=== PATIENT | female | born 1965 | race Caucasian/White ===

== ENCOUNTER → 2017-06-30 16:23 | Outpatient (CLI) | payer BC, SELFPAY ==
[2017-07-07 11:06] LABS: HPV APTIMA, High Risk Negative (Negative)
== END ==
PROVIDERS: Visit Provider Nurse Practitioner Women's Health
DX: Z12.4 Encounter for screening for malignant neoplasm of cervix (principal)
CPT/HCPCS: 88175; G0145

== ENCOUNTER → 2017-07-02 06:52 | Outpatient (CLI) | payer BC, SELFPAY ==
[2017-07-02 07:39] LABS: Cholesterol 301 mg/dL (200); Glucose 90 mg/dL (74-106); High Density Lipoprotein 60 mg/dL; Triglycerides 102 mg/dL; Very Low Density Lipoprotein 20 mg/dL (5-40)
== END ==
PROVIDERS: Family Provider Family Medicine; PCP Family Medicine; Visit Provider Family Medicine
DX: Z13.1 Encounter for screening for diabetes mellitus (principal); Z13.220 Encounter for screening for lipoid disorders
CPT/HCPCS: 36415; 80061; 82947

== ENCOUNTER → 2017-08-26 06:54 | Outpatient (CLI) | payer BC, SELFPAY ==
--- NOTE | 2017-08-26 06:59 | BI_ITS ---
MAMMOGRAPHY - BILATERAL SCREENING REASON FOR EXAM: Female, 52 years old. Routine annual screening examination. PERTINENT HISTORY: Aunt with breast cancer. TECHNIQUE: Digital bilateral breast natalie (3D mammographic acquisition) in the CC and MLO projections. 2-D mediolateral oblique (MLO) and craniocaudad (CC) views of both breasts were obtained. CAD: Full Field Digital Mammography with Computer Added Detection was performed. COMPARISON: Comparison is made with prior outside examination dated October 19, 2015. FINDINGS: Breast Composition: There are scattered areas of fibroglandular density. There are no dominant masses or suspicious calcifications. Stable small bilateral axillary lymph nodes. No other significant abnormalities are identified. There has been no significant change since the prior study. BI/SCREENING MAMM (CAD), BILAT IMPRESSION: Stable bilateral screening mammogram. Yearly follow-up mammogram recommended. (A) ASSESSMENT CATEGORY: BIRADS Category 2: Benign. A letter regarding these results will be sent to the patient by the facility within 30 days. Approximately 10% of breast cancers are not detected by mammography. A normal mammogram should not delay biopsy of a clinically suspicious abnormality. [id number] Electronically Signed: Jonnie Keller MD at 8:39 EDT Tel [phone], Service support ,
== END ==
PROVIDERS: Family Provider Family Medicine; PCP Family Medicine; Visit Provider Nurse Practitioner Women's Health
DX: Z12.31 Encounter for screening mammogram for malignant neoplasm of breast (principal)
CPT/HCPCS: 77063; 77067

== ENCOUNTER → 2018-01-08 06:41 | Outpatient (CLI) | payer BC, SELFPAY ==
[2018-01-08 08:23] LABS: CPK Total, Creatine Kinase 82 U/L (26-192); Cholesterol 229 mg/dL (200); High Density Lipoprotein 50 mg/dL; Triglycerides 171 mg/dL; Very Low Density Lipoprotein 34 mg/dL (5-40)
== END ==
PROVIDERS: Family Provider Family Medicine; PCP Family Medicine; Visit Provider Family Medicine
DX: E78.00 Pure hypercholesterolemia, unspecified (principal)
CPT/HCPCS: 36415; 80061; 82550

== ENCOUNTER 2018-04-09 07:19 | Day surgery (SDC) | payer BC, SELFPAY ==
[2018-04-09 07:50] VITALS: BP 122/65; PULSE 73; RESP 14; TEMP 37.3; O2SAT 99; BMI 29.2
--- NOTE | 2018-04-09 07:50 | HP.PCM_ITS ---
History of Present Illness Date of Admission: 04/09/18 The patient is a 52 year old F here for screening colonoscopy. She denies any blood in her stool or abdominal pain. She denies any family history of colon cancer. She has never had a colonoscopy. Past Medical/Surgical History - Cardiovascular Hx of Irregular Heartbeat and/or Afib: No Hx Heart Attack: No Hx Congestive Heart Failure: No Hx Hypertension: No Hx Pacemaker: No - Respiratory Hx Chronic Obstructive Pulmonary Disease (COPD): No Hx Asthma: No Hx Emphysema: No Hx Sleep Apnea: No Do You Snore Loudly (louder than talking or can be heard): No Do You Often Feel Tired/ Fatigued/ Sleepy Dring Daytime?: No Has Anyone Observed You Stop Breathing During Sleep?: No Result (for STOP score): Negative Smoking Status: Never smoker - Gastrointestinal Hx Gastroesophageal Reflux: No Hx Ulcer: No - Neurological Hx Seizures: No Hx CVA/Stroke: No Hx Multiple Sclerosis: No Hx Parkinson's Disease: No Hx Head/Neck Injury: No Hx Headaches: No Hx Back Injury/Pain: No - Psycho/Social Hx Anxiety: No Hx Depression: Yes Allergies penicillin G Allergy (Mild, Verified 04/09/18 07:36) Other - Physical Exam General: Alert, Oriented x3, Cooperative Neck: No JVD Lungs: Normal air movement Cardiovascular: Regular rate, Regular Rhythm Abdomen: Soft, Non Tender, Non-Distended Assessment/Plan 52-year-old female for screening colonoscopy 1. I explained endoscopy in detail to the patient. I explained the risks including but not limited to stroke or heart attack with anesthesia, perforation of the GI tract, bleeding, infection. I explained that any of these could necessitate further emergency surgery. The patient understands and all questions were answered sufficiently. The patient wishes to proceed with procedure. Howard Virgen MD Pager: [facility] [address] [place] [address] [place] [address] Office: Surgery Risks - Colonoscopy Risks Include but are not Limited To: Risks include but are not limited to: Bleeding, perforation requiring further surgery, inability to complete colonoscopy requiring barium enema.
--- NOTE | 2018-04-09 08:30 | COLBX_PTH ---
PATIENT: AGUSTIN RODRIGUEZ LOC: EN U#:[id number] AGE/SX: 52/F ROOM: RE04/09/[address]: Dr. Howard Virgen MD : 1965 BED: DIS: 04/09/2018 SPEC #: [id number] RECD: 04/09/18 12:10 STATUS: FIONA ADRIAN #: [id number] JOSE: 04/09/18 08:[address]: Howard Virgen DEPT: SURGICAL PATHOLOGY RECD BY: Bobby Talley ENTERED: 04/09/18 12:31 SP TYPE: COLON BX OTHR DR: Dr. Josr Kamara MD Tissues: Rectum, NOS Procedures: Surgery Specimen Level IV HEADER OPERATION: Colonoscopy (MAC) PRE-OP DIAGNOSIS: Screening TISSUE SUBMITTED: Rectal polyp MICROSCOPIC DIAGNOSIS Rectal polyp, biopsy: Consistent with inflammatory polyp. See comment. AM:christy 04/12/18 COMMENT This may be related to solitary rectal ulcer syndrome. MICROSCOPIC DESCRIPTION Slides are reviewed. GROSS DESCRIPTION Received in fixative is one container labeled with the patient's name and designated rectal polyp. The specimen consists of a piece of carter-pink polyp measuring 0.5 x 0.5 x 0.2 cm. The specimen is totally submitted in one cassette. / SJ:rg 04/09/18 TC:5 CPT: 47775
[2018-04-09 08:33] VITALS: BP 122/65; BP 91/54; PULSE 77; RESP 16; TEMP 36.8; O2SAT 100
--- NOTE | 2018-04-09 08:34 | OP.ENDO_ITS ---
Patient Name: Kizzy Sebastian Procedure Date: 04/09/2018 8:00 AM Date of : 1965 Age: 52 Procedure: Colonoscopy Indications: Screening for colorectal malignant neoplasm Providers: Howard Virgen MD Referring MD: Howard Virgen MD Medicines: Monitored Anesthesia Care Patient Profile: This is a 52 year old female. Refer to note in patient chart for documentation of history and physical. Last Colonoscopy: none. The patient's first colonoscopy is today. Complications: No immediate complications. Estimated blood loss: Minimal. Procedure: Pre-Anesthesia Assessment: - Prior to the procedure, a History and Physical was performed, and patient medications and allergies were reviewed. The patient's tolerance of previous anesthesia was also reviewed. The risks and benefits of the procedure and the sedation options and risks were discussed with the patient. All questions were answered, and informed consent was obtained. Prior Anticoagulants: The patient has taken no previous anticoagulant or antiplatelet agents. After reviewing the risks and benefits, the patient was deemed in satisfactory condition to undergo the procedure. After I obtained informed consent, the scope was passed under direct vision. Throughout the procedure, the patient's blood pressure, pulse, and oxygen saturations were monitored continuously. The colonoscope was introduced through the anus and advanced to the cecum, identified by appendiceal orifice and ileocecal valve. The colonoscopy was performed without difficulty. The patient tolerated the procedure well. The quality of the bowel preparation was good. Scope In: 8:13:36 AM Scope Withdrawal Time 0 hours 7 minutes 18 seconds Scope Out: 8:28:02 AM Total Procedure Duration Time 0 hours 14 minutes 26 seconds Findings: A polyp was found in the rectum. The polyp was pedunculated. The polyp was removed with a hot snare. Resection and retrieval were complete. The exam was otherwise without abnormality on direct and retroflexion views. Impression: - One polyp in the rectum, removed with a hot snare. Resected and retrieved. - The examination was otherwise normal on direct and retroflexion views. Recommendation: - Discharge patient to home. - Resume previous diet. - Continue present medications. - Physician's office will call you with pathology results and recommendations for when to repeat colonoscopy. - Repeat colonoscopy date to be determined after pending pathology results are reviewed for surveillance based on pathology results. Procedure Code(s): --- Professional --- 32980, PT, Colonoscopy, flexible; with removal of tumor(s), polyp(s), or other lesion(s) by snare technique Diagnosis Code(s): --- Professional --- Z12.11, Encounter for screening for malignant neoplasm of colon K62.1, Rectal polyp CPT copyright 2017 [employer]. All rights reserved. The codes documented in this report are preliminary and upon hand stapler review may be revised to meet current compliance requirements. Howard Virgen MD 04/09/2018 8:33:45 AM This report has been signed electronically. Number of Addenda: 0 Note Initiated On: 04/09/2018 8:00 AM
[2018-04-09 08:40] VITALS: BP 109/72; BP 122/65; PULSE 76; RESP 16; O2SAT 100
[2018-04-09 08:45] VITALS: BP 116/71; BP 122/65; PULSE 76; RESP 16; O2SAT 98
[2018-04-09 08:50] VITALS: BP 111/69; BP 122/65; PULSE 68; RESP 16; TEMP 36.7; O2SAT 100
[2018-04-09 09:24] VITALS: BP 122/65
--- OUTSIDE RECORDS SUMMARY | 2018-06-04 01:08 | XMS RPT_ITS ---
:1965 Author Organization OHIP Support Name Relationship Address Phone VINAY RODRIGUEZ Unavailable [address] + [place] [address] [facility] Unavailable [address] + [place] [address] VINAY RODRIGUEZ Unavailable [address] + [place] [address] [facility] Unavailable [address] + [place] [address] VINAY RODRIGUEZ Unavailable [address] + [place] [address] [facility] Unavailable [address] + [place] [address] VINAY RODRIGUEZ Unavailable [address] + [place] [address] [facility] Unavailable [address] + [place] [address] VINAY RODRIGUEZ Unavailable [address] + [place] [address] [facility] Unavailable [address] + [place] [address] VINAY RODRIGUEZ Unavailable [address] + [place] [address] [facility] Unavailable [address] + [place] [address] VINAY RODRIGUEZ Unavailable [address] + [place] [address] [facility] Unavailable [address] + [place] [address] VINAY RODRIGUEZ Unavailable [address] + [place] [address] [facility] Unavailable [address] + [place] [address] Care Team Providers Name Role Phone Arelis Parker Attending Unavailable Keith, Arelis Attending Unavailable Campus, Arelis Referring Unavailable Anh, Josr Attending Unavailable Anh, Josr Referring Unavailable Anh, Josr Primary Care Unavailable Keith, Arelis Attending Unavailable Keith, Arelis Referring Unavailable Anh, Josr Primary Care Unavailable Anh, Josr Attending Unavailable Anh, Josr Primary Care Unavailable Anh, Josr Referring Unavailable Nurse, Standard Attending Unavailable Anh, Josr Referring Unavailable Calabretta, Howard Attending Unavailable Calabretta, Howard Referring Unavailable Anh, Josr Primary Care Unavailable Calabretta, Howard Attending Unavailable Calabretta, Howard Referring Unavailable Anh, Josr Primary Care Unavailable Calabretta, Howard Consulting Unavailable PROBLEMS PROBLEMS DATE TYPE CONDITION / CODE ATTENDING STATUS SOURCE 01/08/2018 Unknown E78.00 - Pure Anh, Josr Active Normal hypercholesterolemi Community a, unspecified / Hospital E78.00(ICD-10) Repository 07/02/2017 Unknown Z13.1 - Encounter AnhJosr nevarez Active Normal for screening for [facility] diabetes mellitus / Hospital Z13.1(ICD-10) Repository 07/02/2017 Unknown Z13.220 - Encounter Anh, Josr Active [place] for screening for [facility] lipoid disorders / Hospital Z13.220(ICD-10) Repository 06/30/2017 Unknown Z12.4 - Encounter KeithArelis ham Active Normal for screening for [facility] malignant neoplasm Hospital of cervix / Repository Z12.4(ICD-10) 06/30/2017 Unknown Z12.31 - Encounter KeithArelis ham Active [place] for screening [facility] mammogram for Hospital malignant neoplasm Repository of breast / Z12.31(ICD-10) 06/30/2017 Unknown Z01.419 - Encounter CampusArelis ham Active [place] for gynecological [facility] examination Hospital (general) (routine) Repository without abnormal findings / Z01.419(ICD-10) PROCEDURES PROCEDURES No Procedure Records FoundRESULTS RESULTS PATIENT COMMUNICATION Observed: 04/14/2018 Status: F Source: [place] 10:38 AM [facility] REPOSITORY [facility] [place] [address] PATIENT COMMUNICATION 04/14/18 MR#: [id number] Acct: [id number] Name: KIZZY RODRIGUEZ Rep #: [id number] : 1965 Provider: Howard Virgen MD Age/Sex: 52/F [place] [facility] Patient Communication Details: Patient had an inflammatory polyp in her rectum. She had no adenomatous polyps. Recommend repeat colonoscopy in 10 years. 04/14/18 1038 <Electronically signed by Howard Virgen MD> Date Howard Virgen MD Cosigner Signature: Date (if applicable) CC: Jennifer Zapata; Josr Kamara MD OPERATIVE REPORT - Observed: 04/09/2018 Status: F Source: [facility] 8:34 AM [facility] REPOSITORY [facility] Medical Records Department [address] [place] [address] Operative Report - Endoscopy MR#: [id number] Acct: [id number] Name: KIZZY RODRIGUEZ Rep #: [id number] : 1965 52 From: Howard Virgen MD PCP: Josr Kamara MD Status: [facility] Patient Name: Kizzy Rodriguez Procedure Date: 04/09/2018 8:00 AM Date of : 1965 Age: 52 Procedure: Colonoscopy Indications: Screening for colorectal malignant neoplasm Providers: Howard Virgen MD Referring MD: Howard Virgen MD Medicines: Monitored Anesthesia Care Patient Profile: This is a 52 year old female. Refer to note in patient chart for documentation of history and physical. Last Colonoscopy: none. The patient's first colonoscopy is today. Complications: No immediate complications. Estimated blood loss: Minimal. Procedure: Pre-Anesthesia Assessment: - Prior to the procedure, a History and Physical was performed, and patient medications and allergies were reviewed. The patient's tolerance of previous anesthesia was also reviewed. The risks and benefits of the procedure and the sedation options and risks were discussed with the patient. All questions were answered, and informed consent was obtained. Prior Anticoagulants: The patient has taken no previous anticoagulant or antiplatelet agents. After reviewing the risks and benefits, the patient was deemed in satisfactory condition to undergo the procedure. After I obtained informed consent, the scope was passed under direct vision. Throughout the procedure, the patient's blood pressure, pulse, and oxygen saturations were monitored continuously. The colonoscope was introduced through the anus and advanced to the cecum, identified by appendiceal orifice and ileocecal valve. The colonoscopy was performed without difficulty. The patient tolerated the procedure well. The quality of the bowel preparation was good. Scope In: 8:13:36 AM Scope Withdrawal Time 0 hours 7 minutes 18 seconds Scope Out: 8:28:02 AM Total Procedure Duration Time 0 hours 14 minutes 26 seconds Findings: A polyp was found in the rectum. The polyp was pedunculated. The polyp was removed with a hot snare. Resection and retrieval were complete. The exam was otherwise without abnormality on direct and retroflexion views. Impression: - One polyp in the rectum, removed with a hot snare. Resected and retrieved. - The examination was otherwise normal on direct and retroflexion views. Recommendation: - Discharge patient to home. - Resume previous diet. - Continue present medications. - Physician's office will call you with pathology results and recommendations for when to repeat colonoscopy. - Repeat colonoscopy date to be determined after pending pathology results are reviewed for surveillance based on pathology results. Procedure Code(s): --- Professional --- 22299, PT, Colonoscopy, flexible; with removal of tumor(s), polyp(s), or other lesion(s) by snare technique Diagnosis Code(s): --- Professional --- Z12.11, Encounter for screening for malignant neoplasm of colon K62.1, Rectal polyp CPT copyright 2017 [employer]. All rights reserved. The codes documented in this report are preliminary and upon prescription clerk lenses review may be revised to meet current compliance requirements. Howard Virgen MD 04/09/2018 8:33:45 AM This report has been signed electronically. Number of Addenda: 0 Note Initiated On: 04/09/2018 8:00 AM 04/09/18 0833 Date Howard Virgen MD [facility] Signature: Date (if indicated) CC: Howard Virgen MD; Josr Kamara MD Date Dictated: 04/09/18 0800 Date Transcribed: Digital Field Service Technician: AMARA Signed COLON BIOPSY (CHOOSE Observed: 04/09/2018 Status: F Source: [place] S[facility]) 8:30 AM [facility] REPOSITORY Patient: KIZZY RODRIGUEZ : 1965 (52/F) Acct Num: [id number] Phys: Promise HERNANDEZ,Howard Unit Num: [id number] Loc: EN Specimen: [id number] Received: 04/09/18 - 1210 Spec Type: COLON BX TISSUES 1 TISSUES: Rectum, NOS COMMENT This may be related to solitary rectal ulcer syndrome. GROSS DESCRIPTION Received in fixative is one container labeled with the patient's name and designated rectal polyp. The specimen consists of a piece of carter-pink polyp measuring 0.5 x 0.5 x 0.2 cm. The specimen is totally submitted in one cassette. / SJ:christy 04/09/18 TC:5 CPT: 38139 HEADER OPERATION: Colonoscopy (MAC) PRE-OP DIAGNOSIS: Screening TISSUE SUBMITTED: Rectal polyp MICROSCOPIC DESCRIPTION Slides are reviewed. MICROSCOPIC DIAGNOSIS Rectal polyp, biopsy: Consistent with inflammatory polyp. See comment. AM:christy 04/12/18 Signed Jerald [facility] 04/12/18 <signature on file> Performed By: #### PCOLBX #### [facility] [address] [place], [address] HISTORY AND PHYSICAL Observed: 04/09/2018 Status: F Source: [facility] EX[facility] 7:50 AM [facility] REPOSITORY [facility] Medical Records Department [address] [place] [address] History and Physical 04/09/18 0748 MR#: [id number] Acct: [id number] Name: KIZZY RODRIGUEZ Rep #: [id number] : 1965 52 From: Howard Virgen MD PCP: Josr Kamara MD Status: REG [facility] Location: [place] [address] History of Present Illness Date of Admission: 04/09/18 The patient is a 52 year old F here for screening colonoscopy. She denies any blood in her stool or abdominal pain. She denies any family history of colon cancer. She has never had a colonoscopy. Past Medical/Surgical History - Cardiovascular Hx of Irregular Heartbeat and/or Afib: No Hx Heart Attack: No Hx Congestive Heart Failure: No Hx Hypertension: No Hx Pacemaker: No - Respiratory Hx Chronic Obstructive Pulmonary Disease (COPD): No Hx Asthma: No Hx Emphysema: No Hx Sleep Apnea: No Do You Snore Loudly (louder than talking or can be heard): No Do You Often Feel Tired/ Fatigued/ Sleepy Dring Daytime?: No Has Anyone Observed You Stop Breathing During Sleep?: No Result (for STOP score): Negative Smoking Status: Never smoker - Gastrointestinal Hx Gastroesophageal Reflux: No Hx Ulcer: No - Neurological Hx Seizures: No Hx CVA/Stroke: No Hx Multiple Sclerosis: No Hx Parkinson's Disease: No Hx Head/Neck Injury: No Hx Headaches: No Hx Back Injury/Pain: No - Psycho/Social Hx Anxiety: No Hx Depression: Yes Allergies penicillin G Allergy (Mild, Verified 04/09/18 07:36) Other - Physical Exam General: Alert, Oriented x3, Cooperative Neck: No JVD Lungs: Normal air movement Cardiovascular: Regular rate, Regular Rhythm Abdomen: Soft, Non Tender, Non-Distended Assessment/Plan 52-year-old female for screening colonoscopy 1. I explained endoscopy in detail to the patient. I explained the risks including but not limited to stroke or heart attack with anesthesia, perforation of the GI tract, bleeding, infection. I explained that any of these could necessitate further emergency surgery. The patient understands and all questions were answered sufficiently. The patient wishes to proceed with procedure. Howard Virgen MD Pager: [facility] [address] [place] [address], [address] [place] [address] Office: Surgery Risks - Colonoscopy Risks Include but are not Limited To: Risks include but are not limited to: Bleeding, perforation requiring further surgery, inability to complete colonoscopy requiring barium enema. 04/09/18 0750 <Electronically signed by Howard Virgen MD> Date Howard Virgen MD Cosigner Signature: Date (if applicable) CC: Howard Virgen MD; Josr Kamara MD Signed LIPID PROFILE Collected: 01/08/2018 Status: F Source: [place] 6:47 AM [facility] REPOSITORY TYPE CODE TESTS RESULT OUT OF RANGE REFERENCE UNITS LAB L501.4900 200 mg/dL High CHOL 229 Result Comment: <200 mg/dL Desirable 200-240 mg/dL Borderline >240 mg/dL High Risk LAB L501.5000 mg/dL Normal TRIG 171 Result Comment: The drugs N-Acetylcysteine and Metamizole may falsely depress this assay. Serum Triglycerides Reference Interval Normal <150 mg/dL Borderline high 150 - 199 mg/dL High 200 - 499 mg/dL Very High > or = 500 mg/dL LAB L501.6400 mg/dL Normal HDL 50 Result Comment: The drugs N-Acetylcysteine and Metamizole may falsely depress this assay. Reference Range HDL <40 mg/dL Low HDL Cholesterol HDL >or= 60 mg/dL High HDL Cholesterol LAB L501.6500 0-130 mg/dL High LDL 145 LAB L501.6600 5-40 mg/dL Normal VLDL 34 Performed By: #### L500.4100, L501.3620 #### [facility] [address] [place] [address]. [place], [address] CPK TOTAL, CREATINE Collected: 01/08/2018 Status: F Source: [place] [facility] 6:47 AM [facility] REPOSITORY TYPE CODE TESTS RESULT OUT OF RANGE REFERENCE UNITS LAB L501.3620 26-192 U/L Normal CPK TOTAL 82 Performed By: #### L500.4100, L501.3620 #### [facility] [address] [place], [address] SCREENING MAMM (CAD), Observed: 08/26/2017 Status: F Source: [place] BIL[place] 6:59 AM [facility] REPOSITORY [facility] Imaging Services [address] [place] [address] SCREENING MAMM (CAD), BILAT MR#: [id number] Acct: [id number] Name: KIZZY RODRIGUEZ Rep #: [id number] : 1965 F 52 From: Jonnie Keller MD PCP: Josr Kamara Status: REG CLI Study: SCREENING MAMM (CAD), BILAT Date of Exam: 08/26/17 Exam# [id number] Ordering Dr: Arelis Parker HOTEL HOUSEMAN-C MAMMOGRAPHY - BILATERAL SCREENING REASON FOR EXAM: Female, 52 years old. Routine annual screening examination. PERTINENT HISTORY: Aunt with breast cancer. TECHNIQUE: Digital bilateral breast natalie (3D mammographic acquisition) in the CC and MLO projections. 2-D mediolateral oblique (MLO) and craniocaudad (CC) views of both breasts were obtained. CAD: Full Field Digital Mammography with Computer Added Detection was performed. COMPARISON: Comparison is made with prior outside examination dated October 19, 2015. FINDINGS: Breast Composition: There are scattered areas of fibroglandular density. There are no dominant masses or suspicious calcifications. Stable small bilateral axillary lymph nodes. No other significant abnormalities are identified. There has been no significant change since the prior study. BI/SCREENING MAMM (CAD), BILAT IMPRESSION: Stable bilateral screening mammogram. Yearly follow-up mammogram recommended. (A) ASSESSMENT CATEGORY: BIRADS Category 2: Benign. A letter regarding these results will be sent to the patient by the facility within 30 days. Approximately 10% of breast cancers are not detected by mammography. A normal mammogram should not delay biopsy of a clinically suspicious abnormality. [id number] Electronically Signed: Jonnie Keller MD at 8:39 EDT Tel [phone], Service support , CC: ELYSIA Parker; Josr Kamara Digital Field Service Technician: Signed LIPID PROFILE Collected: 07/02/2017 Status: F Source: [place] 6:55 AM [facility] REPOSITORY TYPE CODE TESTS RESULT OUT OF RANGE REFERENCE UNITS LAB L501.4900 200 mg/dL High CHOL 301 Result Comment: <200 mg/dL Desirable 200-240 mg/dL Borderline >240 mg/dL High Risk LAB L501.5000 mg/dL Normal TRIG 102 Result Comment: The drugs N-Acetylcysteine and Metamizole may falsely depress this assay. Serum Triglycerides Reference Interval Normal <150 mg/dL Borderline high 150 - 199 mg/dL High 200 - 499 mg/dL Very High > or = 500 mg/dL LAB L501.6400 mg/dL Normal HDL 60 Result Comment: The drugs N-Acetylcysteine and Metamizole may falsely depress this assay. Reference Range HDL <40 mg/dL Low HDL Cholesterol HDL >or= 60 mg/dL High HDL Cholesterol LAB L501.6500 0-130 mg/dL High LDL 221 LAB L501.6600 5-40 mg/dL Normal VLDL 20 Performed By: #### L500.4100, L501.0100 #### [facility] [address] [place], [place], [address] GLUCOSE Collected: 07/02/2017 Status: F Source: [place] 6:55 AM [facility] REPOSITORY TYPE CODE TESTS RESULT OUT OF RANGE REFERENCE UNITS LAB L501.0100 74-106 mg/dL Normal GLU 90 Result Comment: Please note revised GLUCOSE reference range effective 2017. Performed By: #### L500.4100, L501.0100 #### [facility] [address] [place], [address] PAP IG HPV HR Collected: 06/30/2017 Status: F Source: [place] 7:10 PM [facility] REPOSITORY Order Comment: CYTOLOGY INFORMATION: - CLINICAL INFORMATION: other - DATE LMP/MENOPAUSE: LMP/ not given - COLLECTION VIAL: Thin Prep Vial - BUTTON BRADDER SOURCE: CERVICAL - COLLECTION TECHNIQUE: BRUSH/SPATULA Specimen Comment: [id number] Specimen Comment: No. of containers..01 ThinPrep Vial TYPE CODE TESTS RESULT OUT OF RANGE REFERENCE UNITS LAB L7400.0800 . Normal DIAGN Comment Result Comment: NEGATIVE FOR INTRAEPITHELIAL LESION AND MALIGNANCY. THIS SPECIMEN WAS RESCREENED PART OF OUR SPECIALTY DEVELOPMENT CONSULTANT PROGRAM. LAB L7400.0900 . Normal ADEQ Comment Result Comment: Satisfactory for evaluation. Endocervical and/or squamous metaplastic cells (endocervical component) are present. LAB L7400.1400 . Normal PERFORM Comment Result Comment: Libby Chery, Director Pharmacovigilance (ASCP) LAB L7400.1500 . Normal QC Comment REV Result Comment: Patria Montero, Director Pharmacovigilance (ASCP) LAB L7400.2575 . Normal TEST METHOD Comment Result Comment: This liquid based ThinPrep(R) pap test was screened with the use of an image guided system. LAB L7400.2600 . Normal . COMM LAB L7400.2700 . Normal PAPSMR Comment Result Comment: The Pap smear is a screening test designed to aid in the detection of premalignant and malignant conditions of the uterine cervix. It is not a diagnostic procedure and should not be used as the sole means of detecting cervical cancer. Both false-positive and false-negative reports do occur. LAB L7400.2760 Negative Normal HPV APTIMA, Negative HR Result Comment: This test detects fourteen high-risk HPV types (16/18/31/33/35/39/45/ 51/52/56/58/59/66/68) without differentiation. Performed at: [address] [id number] Credit Reference Clerk: Suzie Rascon MD, Phone: [phone] Performed at: =G - [facility] [address] [id number] Credit Reference Clerk: Suzie Rascon MD, Phone: [phone] Performed By: #### L7400.0377 #### [facility] (refer to report for specific site) refer to report for address and phone number FOUNDATION ASSISTANT OFFICE VISIT Observed: 06/30/2017 Status: F Source: [facility] RE[facility] 1:46 PM [facility] [place] [address] [place] [address] OFFICE VISIT Date of Service: 06/30/17 MR#: [id number] Acct: [id number] Name: KIZZY RODRIGUEZ Rep #: [id number] : 1965 Provider: ELYSIA Parker Age/Sex: 51/F Location: [facility] Status: Signed Intake Vital Signs06/30/17 Height 5 ft 5 in 06/30/17 Weight: 176 lb 4 oz 06/30/17 Body Mass Index (BMI) 29.3 06/30/17 Blood Pressure 123/80 Intake Visit Reasons: BUTTON BRADDER annual exam Chief Complaint: NEW annual Data Migration Consultant Required: No Is patient in pain?: No Allergies penicillin G Allergy (Mild, Verified 06/30/17 13:17) Other Medications levonorgestrel 14 mcg/24 hour (3 years) intrauterine device 1 insert INTRAUTERINE ONCE 06/30/17 [History Confirmed 06/30/17] soy isoflavone-black cohosh root-magnolia bark 155 mg capsule cap PO 06/30/17 [History Confirmed 06/30/17] Is last menstrual period known: No Post menopausal: No Patient : No : No PFSH Surgical History H/O dilation and curettage (Acute) Family History Father Hyperlipidemia Mother Hyperlipidemia Aunt Breast cancer Social History Smoking Status: Never smoker alcohol intake: current details: social substance use type: does not use caffeine: Yes what type of physical activity do you participate in: none seatbelt use: always do you feel safe at home: Yes additional social history: to [employer] Patient works at [employer] History 0 Elective abortions Hx Para Spontaneous abortions HPI Encounter for routine gynecological examination: Details: KIZZY HECK is a 51 year old who presents for annual exam. and denies concerns, using OTC lubricant with benefit. Moved here recently from [place] Last PAP: 2016 ? History of abnormal PAP: no Last mammogram: 2015 History of abnormal mammogram: no Kimberli IUD July 2015 No menses since IUD placed Female Reproductive History Questions: Metorrhagia: No, Sexually active: Yes, Dyspareunia: No, PCB: No ROS Const Constitutional: Denies fatigue, weight gain or weight loss Cardio Card: Denies chest pain Resp Resp: Denies cough or shortness of breath with activity GI GI: Denies abdominal pain, constipation, change in stools, vomiting or bloating : Reports as per HPI; denies urinary frequency, pelvic pain, urinary urgency, vaginal discharge, vaginal itching, urinary incontinence or difficulty urinating Exam Const General: cooperative, healthy appearing, no acute distress, well developed Orientation: alert, oriented to person, oriented to place HENMT Head: normal to inspection Neck Neck: normal visual inspection Thyroid: thyroid normal Lymphatic: no lymphadenopathy noted Chest Breast inspection: normal inspection of the breasts, normal inspection of the axillae Breast palpation: normal palpation of the breasts, normal palpation of the axillae, no axillary lymphadenopathy Resp Effort AND Inspection: normal respiratory effort Auscultation: clear to auscultation bilaterally Cardio Rate: regular rate Rhythm: regular rhythm GI Palpation: soft, nontender, no masses Rectal Exam: mass, deferred External Female Exam: normal external appearance, normal appearance of the urethra Urethra: normal appearance of the urethra, normal palpation Speculum Exam - Vagina: normal appearance of the vagina, normal vaginal discharge Speculum Exam - Cervix: normal appearance of the cervix, other (IUD strings at os. Pap collected) Bimanual Exam- Vagina AND Uterus: normal bimanual exam, uterine size normal, uterine shape normal, uterus non-tender Bimanual Exam- Adnexa, other: normal adnexae, no adnexal masses, adnexae non-tender, pelvic support normal Pelvic Support: normal Neuro General: alert, oriented x3 Psych Affect: normal affect Assessment AND Plan Problems 1. Encounter for gynecological examination without abnormal finding Z01.419 2. Encounter for screening mammogram for malignant neoplasm of breast Z12.31 3. Pap smear for cervical cancer screening Z12.4 Plan Completed breast and pelvic exam Reviewed diet and exercise Pap thin prep pap and HPV collected Mammogram ordered Contraception ok in July 2015 Colonoscopy NA Bone density NA RTO 1 year, prn with problems Arelis Parker DOPE WEIGH OPERATOR Orders Orders: Coding Level of Care Code Off vis,new,prev 40-64yrs Diagnoses Encounter for gynecological examination without abnormal finding Z01.419 Gynecological examination findings: abnormal findings ABSENT Encounter for screening mammogram for malignant neoplasm of breast Z12.31 Pap smear for cervical cancer screening Z12.4 06/30/17 1346 <Electronically signed by Arelis PACHECO> Date Arelis PACHECO Cosigner Signature: Date (if applicable) CC: ALLERGIES ALLERGIES DATE TYPE / CODE NAME / CODE REACTION SEVERITY SOURCE 04/09/2018 Drug penicillin Other AR Normal Allergy/416 [id number]([facility] [id number]([facility] ED ID) Repository ENCOUNTERS ENCOUNTERS ADMIT/DISCHARGE ACCOUNT ADMITTING ENCOUNTER LOCATION SOURCE NUMBER CLASS 04/09/2018 [id number] Ambulatory BMSBuilding:B [place] 7 [place] Repository 04/09/2018/ [id number] Ambulatory Normal Normal 8 2 [facility] ing:ENRoom: Repository AC14 03/05/2018/ [id number] Ambulatory BMSBuilding:B Normal 8 6 [facility] Repository 01/08/2018 [id number] Ambulatory [place] 1 [facility] ing:LAB.[facility] Repository E 08/26/2017 [id number] Ambulatory Normal Normal 6 [facility] ing:OPBI Repository 07/02/2017 [id number] Ambulatory Normal Normal 8 [facility] ing:LAB Repository 06/30/2017 [id number] Ambulatory [place] 5 [facility] ing:LABSPEC Repository 06/30/2017/ [id number] Ambulatory BMSBuilding:B Normal 8 4 [facility] Repository PAYERS PAYERS ENCOUNTER GUARANTOR PAYER SUBSCRIBER SOURCE 04/09/2018 KIZZY J Primary KIZZY Spicer [id number] Insurance:ANTHEMPolic BLACKSTENDOB: [facility] [place] y Number: [id number], [place] [id number] Repository [address]Rfi: (330) Date:0549-56-81CB [phone] () [address] [place] [address] [place] [address]OM: 04/09/2018 Secondary NOT GIVENUNK Nayan Insurance:SELF PAY [facility] Number: Effective Repository Date:2018-04-09 04/09/2018 KIZZY Pascual Primary KIZZY J Normal [id number] Insurance:ANTHEMPolic BLACKSTENDOB: [facility] y Number: [id number], [place] [id number] Repository [address]Sym: (330) Date:1172-58-43OK [phone] () [id number], [place] [address]VB: 04/09/2018 Secondary NOT GIVENUNK Nayan Insurance:SELF PAY [facility] Number: Effective Repository Date:2018-03-05 03/05/2018 KIZZY Pascual Primary KIZZYASHLYN Spicer [id number] Insurance:ANTHEMPolic BLACKSTENDOB: [facility] [place] y Number: [id number], [place] [id number] Repository [address]Taf: (330) Date:1901-22-13BG [phone] () [id number], [place] [address]JX: 03/05/2018 Secondary NOT GIVENUNK Nayan Insurance:SELF PAY [facility] Number: Effective Repository Date:2018-03-05 01/08/2018 KIZZY Garner Primary KIZZYASHLYN Garayoster [id number] Insurance:ANTHEMPolic BLACKSTENDOB: [facility] y Number: [id number], [place] [id number] Repository [address]Kkc: (330) Date:1228-55-02AQ [phone] () [id number] MCDONALD [address]JN: 01/08/2018 Secondary NOT GIVENUNK Normal Insurance:SELF PAY [facility] Number: Effective Repository Date:2017-11-25 08/26/2017 KIZZY J Primary KIZZY J Nayan [id number] Insurance:ANTHEMPolic BLACKSTENDOB: [facility] [place] y Number: [id number], [place] [id number] Repository [address]Lfu: (330) Date:3970-07-94BY [phone] () [id number] MCDONALD [address]MM: 08/26/2017 Secondary NOT GIVENUNK Normal Insurance:SELF PAY [facility] Number: Effective Repository Date:2017-07-28 07/02/2017 KIZZY Primary KIZZY Nayan [id number] Insurance:ANTHEMPolic BLACKSTENDOB: [facility] [place] y Number: [id number], [place] [id number] Repository [address]Vdh: (330) Date:1008-66-23SY [phone] () [id number], [place] [address]UI: 07/02/2017 Secondary NOT GIVENUNK Normal Insurance:SELF PAY [facility] Number: Effective Repository Date:2017-07-02 06/30/2017 KIZZY Primary KIZZY Nayan [id number] Insurance:ANTHEMPolic BLACKSTENDOB: [facility] [place] y Number: [id number], [place] [id number] Repository [address]Yfg: (330) Date:6447-21-65HT [phone] () [id number], [place] [address]CK: 06/30/2017 Secondary NOT GIVENUNK Nayan Insurance:SELF PAY [facility] Number: Effective Repository Date:2017-06-30 06/30/2017 KIZZY Primary KIZZY Spicer [id number] Insurance:ANTHEMPolic BLACKSTENDOB: [facility] [place] y Number: [id number], [place] [id number] Repository [address]Cpt: [phone]) Date:2853-17-53SF [phone] () [id number], [place] [address]SP: 06/30/2017 Secondary NOT GIVENUNK Normal Insurance:SELF PAY [facility] Effective Repository Date:2017-05-29
== END 2018-04-09 09:28 | disposition home or self-care (01) ==
LOC: EN 07:19 → AC 07:21
PROVIDERS: Family Provider Family Medicine; PCP Family Medicine; Referring Provider Surgery; Visit Provider Surgery
PROC: 0DJD8ZZ Inspection of Lower Intestinal Tract, Via Natural or Artificial Opening Endoscopic (ICD-10-PCS; CPT 45378; principal; 2018-04-09 08:25)
DX: Z12.11 Encounter for screening for malignant neoplasm of colon (principal); K62.1 Rectal polyp; Z88.0 Allergy status to penicillin
CPT/HCPCS: 45385; 88305; J7120

== ENCOUNTER → 2018-07-27 06:26 | Outpatient (CLI) | payer OTHER, SELFPAY ==
[2018-07-27 08:02] LABS: Follicle Stimulating Hormone 13.8 mIU/mL
== END ==
PROVIDERS: Family Provider Family Medicine; PCP Family Medicine; Referring Provider Nurse Practitioner Women's Health; Visit Provider Nurse Practitioner Women's Health
DX: N91.2 Amenorrhea, unspecified (principal)
CPT/HCPCS: 36415; 83001

== ENCOUNTER → 2018-09-09 07:00 | Outpatient (CLI) | payer OTHER, SELFPAY ==
[2018-08-12 14:28] VITALS: BMI 29.2
--- NOTE | 2018-09-09 07:01 | BI_ITS ---
MAMMOGRAPHY - BILATERAL SCREENING REASON FOR EXAM: Female, 53 years old. Routine annual screening examination. PERTINENT HISTORY: Aunt with breast cancer. TECHNIQUE: Digital bilateral breast suzan (3D mammographic acquisition) in the CC and MLO projections. 2-D mediolateral oblique (MLO) and craniocaudad (CC) views of both breasts were obtained. CAD: Full Field Digital Mammography with Computer Added Detection was performed. COMPARISON: Comparison is made with prior study dated August 26, 2017 and January 22, 2012. FINDINGS: Breast Composition: There are scattered areas of fibroglandular density. There are no dominant masses or suspicious calcifications. No other significant abnormalities are identified. There has been no significant change since the prior study. BI/SCREEN MAMM (CAD) W/SUZAN BILAT IMPRESSION: Stable bilateral screening mammogram. Yearly follow-up mammogram recommended. (A) ASSESSMENT CATEGORY: BIRADS Category 1: Negative. A letter regarding these results will be sent to the patient by the facility within 30 days. Approximately 10% of breast cancers are not detected by mammography. A normal mammogram should not delay biopsy of a clinically suspicious abnormality. [id number] Electronically Signed: Jonnie Keller, at 11:14 EDT , Service support ,
== END ==
PROVIDERS: Family Provider Family Medicine; PCP Family Medicine; Referring Provider Nurse Practitioner Women's Health; Visit Provider Nurse Practitioner Women's Health
DX: Z12.31 Encounter for screening mammogram for malignant neoplasm of breast (principal); Z80.3 Family history of malignant neoplasm of breast
CPT/HCPCS: 77063; 77067

== ENCOUNTER → 2020-02-20 18:04 | Outpatient (CLI) | payer OTHER, SELFPAY ==
[2018-10-21 15:54] VITALS: BMI 29.4
== END ==
PROVIDERS: PCP Family Medicine; Referring Provider Family Medicine; Visit Provider Family Medicine
DX: Z03.818 Encounter for observation for suspected exposure to other biological agents ruled out (principal)
CPT/HCPCS: 87635; C9803; U0003

== ENCOUNTER → 2020-04-13 13:29 | Outpatient (CLI) | payer OTHER, SELFPAY ==
[2018-10-21 15:54] VITALS: BMI 29.4
[2020-04-13 15:48] LABS: AST(SGOT) 29 U/L (15-37); Alanine Aminotransfer ALT/SGPT 59 U/L (13-56); Albumin, Serum 4.1 g/dL (3.2-5.0); Alkaline Phosphatase 124 U/L (45-117); Anion Gap 6 (5-15); BUN 12 mg/dL (7-18); BUN/Creat Ratio 18.3 RATIO (10-20); Calcium,Total 9.3 mg/dL (8.5-10.1); Chloride 103 mmol/L (98-107); Cholesterol 245 mg/dL (200); Creatinine, Serum 0.66 mg/dL (0.55-1.02); EST Glomerular Filtration Rate 100 mL/min (>60); Est Glom Filt Rate - Afr Amer 122 mL/min (>60); Glucose 85 mg/dL (74-106); High Density Lipoprotein 56 mg/dL; Potassium 3.7 mmol/L (3.5-5.1); Protein, Total 8.1 g/dL (6.4-8.2); Sodium Level 135 mmol/L (136-145); Triglycerides 127 mg/dL; Very Low Density Lipoprotein 25 mg/dL (5-40)
== END ==
PROVIDERS: PCP Family Medicine; Visit Provider Family Medicine
DX: E78.00 Pure hypercholesterolemia, unspecified (principal)
CPT/HCPCS: 36415; 80053; 80061

== ENCOUNTER → 2020-05-23 17:15 | Outpatient (CLI) | payer OTHER, SELFPAY ==
[2018-10-21 15:54] VITALS: BMI 29.4
--- NOTE | 2020-05-23 17:16 | RAD_ITS ---
STUDY: X-RAY - PELVIS REASON FOR EXAM: Female, 54 years old. PAIN RIGHT SIDE ILIAC CREST X SEVERAL MONTHS TECHNIQUE: One view of the pelvis was obtained. COMPARISON: None. FINDINGS: There is a non-specific bowel gas pattern. Normal visualized soft tissue structures. Normal bilateral iliac wings, sacroiliac joints and visualized sacrum. Normal visualized bilateral superior and inferior pubic rami. Normal pubic symphysis. Normal ischial tuberosities. Normal visualized right femoral head. Normal right acetabulum. Normal right hip joint. Normal visualized left femoral head. Normal left acetabulum. Normal left hip joint. RAD/Pelvis 1 or 2 Views IMPRESSION: Normal x-ray examination of the pelvis. Electronically Signed: Andres Cary MD at 21:47 EST , Service support ,
== END ==
PROVIDERS: PCP Family Medicine; Referring Provider Family Medicine; Visit Provider Family Medicine
DX: M25.559 Pain in unspecified hip (principal)
CPT/HCPCS: 72170

== ENCOUNTER 2020-07-24 09:00 | Outpatient (RCR) | payer OTHER, SELFPAY ==
[2018-10-21 15:54] VITALS: BMI 29.4
[2020-07-24] MEDS: COVID-19 VACC, MRNA(PFIZER)/PF 30 MCG/0.3 ML SYRINGE IM (15:00)
[2020-08-14] MEDS: COVID-19 VACC, MRNA(PFIZER)/PF 30 MCG/0.3 ML SYRINGE IM (18:15)
== END 2020-10-16 23:59 ==
LOC: IMMUN 09:00
PROVIDERS: PCP Family Medicine; Visit Provider Family Medicine
DX: Z23 Encounter for immunization (principal)
CPT/HCPCS: 0001A; 0002A; 91300

== ENCOUNTER → 2020-12-04 11:49 | Outpatient (CLI) | payer OTHER, SELFPAY ==
[2018-10-21 15:54] VITALS: BMI 29.4
--- NOTE | 2020-12-04 11:51 | BI_ITS ---
MAMMOGRAPHY - BILATERAL SCREENING REASON FOR EXAM: Female, 55 years old. Routine annual screening examination. PERTINENT HISTORY: Aunts with breast cancer. TECHNIQUE: Digital bilateral breast suzan (3D mammographic acquisition) in the CC and MLO projections. 2-D mediolateral oblique (MLO) and craniocaudad (CC) views of both breasts were obtained. CAD: Full Field Digital Mammography with Computer Added Detection was performed. COMPARISON: Comparison is made with prior study of 09/09/2018 and 08/26/2017. FINDINGS: Breast Composition: There are scattered areas of fibroglandular density. There are no dominant masses or suspicious calcifications. There is a 7 mm well-defined nodule in the deep upper lateral aspect of the right breast. Correlation with ultrasound is recommended. No other significant abnormalities are identified. BI/SCRN MAMM (CAD)W/SUZAN BILAT IMPRESSION: 7 mm well-defined nodule in the deep upper lateral aspect of the right breast. Correlation with ultrasound is recommended. ASSESSMENT CATEGORY: BIRADS Category 0: Incomplete. Need additional imaging evaluation. A letter regarding these results will be sent to the patient by the facility within 30 days. Approximately 10% of breast cancers are not detected by mammography. A normal mammogram should not delay biopsy of a clinically suspicious abnormality. [id number] Electronically Signed: Jonnie Keller MD at 13:04 EDT , Service support ,
== END ==
PROVIDERS: PCP Family Medicine; Referring Provider Nurse Practitioner Women's Health; Visit Provider Nurse Practitioner Women's Health
DX: Z12.31 Encounter for screening mammogram for malignant neoplasm of breast (principal)
CPT/HCPCS: 77063; 77067

== ENCOUNTER → 2020-12-07 10:44 | Outpatient (CLI) | payer OTHER, SELFPAY ==
[2018-10-21 15:54] VITALS: BMI 29.4
--- NOTE | 2020-12-07 10:58 | US_ITS ---
STUDY: ULTRASOUND BREAST - RIGHT REASON FOR EXAM: Female, 55 years old. Abnormal mammogram TECHNIQUE: Axial and longitudinal images of the RIGHT breast were performed with a high resolution ultrasound transducer. # OF IMAGES: 12 COMPARISON: 12/04/2020 FINDINGS: RIGHT Breast: Ultrasound evaluation of the right breast in the area of concern, at 10 o''clock, 8 cm of the nipple shows a well-defined anechoic simple cyst measuring 0.5 x 0.5 x 0.4 cms. No suspicious shadowing solid lesion, architectural distortion, or clustered shadowing calcification. US/Breast Limited Unilateral IMPRESSION: No suspicious sonographic findings. Simple cyst ASSESSMENT CATEGORY: BIRADS Category 2: Benign. A letter regarding these results will be sent to the patient by the facility within 30 days. Electronically Signed: Gary Norman MD at 11:17 EDT , Service support ,
== END ==
PROVIDERS: PCP Family Medicine; Referring Provider Nurse Practitioner Women's Health; Visit Provider Nurse Practitioner Women's Health
DX: N60.01 Solitary cyst of right breast (principal)
CPT/HCPCS: 76642

== ENCOUNTER → 2021-03-27 17:08 | Outpatient (CLI) | payer OTHER, SELFPAY ==
--- NOTE | 2021-03-27 17:10 | RAD_ITS ---
INDICATION: PAIN EXAMINATION/TECHNIQUE: X-RAY - XR Spine Lumbar Min 4 Views COMPARISON: None. FINDINGS: VERTEBRAE: Preserved vertebral body height. No fracture. No spondylolisthesis. Preservation of the normal lumbar lordosis. No significant facet arthropathy. No pars defect. DISCS: Minimal intervertebral disc height loss at L5-S1. There are some mild degenerative endplate changes at L3-4, L4-5 and L5-S1. INCLUDED ABDOMEN: Included bowel gas pattern is non-obstructive. Sacroiliac joints are normal. T shaped contraceptive device midline pelvis likely intrauterine location. RAD/L/S Spine Min 4 Views IMPRESSION: Mild degenerative changes as above. No fracture or malalignment. Electronically Signed: Douglas Alarcon DO at 21:55 EST Tel , Service support ,
== END ==
PROVIDERS: PCP Family Medicine; Referring Provider Family Medicine; Visit Provider Family Medicine
DX: M54.16 Radiculopathy, lumbar region (principal)
CPT/HCPCS: 72110

== ENCOUNTER → 2022-01-02 | Outpatient (CLI) | payer OTHER, SELFPAY ==
--- NOTE | 2022-01-02 07:30 | BI_ITS ---
MAMMOGRAPHY - BILATERAL SCREENING REASON FOR EXAM: Female, 56 years old. Routine annual screening examination. PERTINENT HISTORY: Aunts with breast cancer. TECHNIQUE: Digital bilateral breast suzan (3D mammographic acquisition) in the CC and MLO projections. 2-D mediolateral oblique (MLO) and craniocaudad (CC) views of both breasts were obtained. CAD: Full Field Digital Mammography with Computer Added Detection was performed. COMPARISON: Comparison is made with prior study dated 12/04/2020 and 09/09/2018 FINDINGS: Breast Composition: There are scattered areas of fibroglandular density. There are no dominant masses or suspicious calcifications. Stable 7 mm well-defined nodule in the deep upper lateral aspect of the right breast. This was demonstrated to be a cyst on prior sonogram. No other significant abnormalities are identified. There has been no significant change since the prior study. BI/SCRN MAMM (CAD)W/SUZAN BILAT IMPRESSION: Stable bilateral screening mammogram. Yearly follow-up mammogram recommended. (A) ASSESSMENT CATEGORY: BIRADS Category 2: Benign. A letter regarding these results will be sent to the patient by the facility within 30 days. Approximately 10% of breast cancers are not detected by mammography. A normal mammogram should not delay biopsy of a clinically suspicious abnormality. [id number] Electronically Signed: Jonnie Keller MD at 8:37 EDT ,
== END | disposition home or self-care (01) ==
LOC: OPBI 07:28
PROVIDERS: PCP Family Medicine; Visit Provider Nurse Practitioner Women's Health
DX: Z12.31 Encounter for screening mammogram for malignant neoplasm of breast (principal)
CPT/HCPCS: 77063; 77067

== ENCOUNTER → 2022-04-07 | Outpatient (CLI) | payer OTHER, SELFPAY ==
[2022-04-07 13:29] LABS: Estradiol 18.5 pg/mL; Follicle Stimulating Hormone 75.3 mIU/mL
== END | disposition home or self-care (01) ==
LOC: LAB 12:15
PROVIDERS: PCP Family Medicine; Referring Provider Nurse Practitioner Women's Health; Visit Provider Nurse Practitioner Women's Health
DX: N95.1 Menopausal and female climacteric states (principal)
CPT/HCPCS: 36415; 82670; 83001

== ENCOUNTER → 2023-10-15 | Outpatient (CLI) | payer OTHER, SELFPAY ==
[2023-10-15 07:52] LABS: Erythrocyte Sedimentation Rate 10 mm/hr (0-30)
[2023-10-15 07:54] LABS: Absolute Neutrophil Count 3.2 X10^3/uL (2.0-7.7); Basophil# 0.07 X10^3/uL; Basophil% 1.1 % (0-1); Eosinophil# 0.35 X10^3/uL; Eosinophils% 5.6 % (0-5); Hematocrit 40.1 % (37-47); Hemoglobin 13.2 g/dL (12.0-15.0); Lymphocyte % 30.5 % (19-41); Mean Corp Hgb Conc 32.9 g/dL (32-36); Mean Corpuscular Volume 91.1 fL (81-99); Mean Platelet Vol. 10.1 fl (6.2-12.0); Monocyte# 0.72 X10^3/uL; Monocyte% 11.6 % (0-10); NRBC Flagged by Analyzer 0 % (0-5); Neutrophil # 3.18 X10^3/uL (2.7-7.7); Platelet Count 282 K/mm3 (150-450); RBC Distribution Width CV 12.3 % (11.6-14.6); RBC Distribution Width SD 41.6 fl (35.1-43.9); White Blood Count 6.2 K/mm3 (4.4-11.0)
[2023-10-15 08:34] LABS: AST(SGOT) 27 U/L (15-37); Alanine Aminotransfer ALT/SGPT 48 U/L (13-56); Albumin, Serum 3.9 g/dL (3.2-5.0); Alkaline Phosphatase 116 U/L (45-117); Anion Gap 6 (5-15); BUN 13 mg/dL (7-18); BUN/Creat Ratio 19.1 RATIO (10-20); CRP 5.76 mg/L (0.0-3.0); Calcium,Total 9.6 mg/dL (8.5-10.1); Chloride 104 mmol/L (98-107); Cholesterol 218 mg/dL (200); Creatinine, Serum 0.68 mg/dL (0.55-1.02); EST Glomerular Filtration Rate 95 mL/min (>60); Est Glom Filt Rate - Afr Amer 115 mL/min (>60); Globulin 3.9 g/dL (2.2-4.2); Glucose 96 mg/dL (74-106); High Density Lipoprotein 56 mg/dL; Potassium 4.7 mmol/L (3.5-5.1); Protein, Total 7.8 g/dL (6.4-8.2); Sodium Level 136 mmol/L (136-145); Triglycerides 191 mg/dL; Very Low Density Lipoprotein 38 mg/dL (5-40)
[2023-10-16 12:09] LABS: ANTINUCLEAR ANTIBODIES DIRECT Negative (Negative)
[2023-10-20 20:28] LABS: Rheumatoid Factor < 10.0 IU/mL (<15)
== END | disposition home or self-care (01) ==
PROVIDERS: PCP Nurse Practitioner Family; Referring Provider Nurse Practitioner Family; Visit Provider Nurse Practitioner Family
DX: Z00.01 Encounter for general adult medical examination with abnormal findings (principal); M25.50 Pain in unspecified joint; E78.00 Pure hypercholesterolemia, unspecified
CPT/HCPCS: 36415; 80053; 80061; 85025; 85652; 86038; 86140; 86431

== ENCOUNTER → 2023-10-22 | Outpatient (CLI) | payer OTHER, SELFPAY ==
--- NOTE | 2023-10-22 07:29 | BI_ITS ---
MAMMOGRAPHY - BILATERAL SCREENING REASON FOR EXAM: Female, 58 years old. Routine annual screening examination. PERTINENT HISTORY: Sister with breast cancer. Aunt with breast cancer. TECHNIQUE: Digital bilateral breast suzan (3D mammographic acquisition) in the CC and MLO projections. 2-D mediolateral oblique (MLO) and craniocaudad (CC) views of both breasts were obtained. CAD: Full Field Digital Mammography with Computer Added Detection was performed. COMPARISON: Comparison is made with prior study January 02, 2022 and December 04, 2020. FINDINGS: Breast Composition: There are scattered areas of fibroglandular density. There are no dominant masses or suspicious calcifications. Stable small benign-appearing bilateral axillary lymph nodes. No other significant abnormalities are identified. There has been no significant change since the prior study. BI/SCRN MAMM (CAD)W/SUZAN BILAT IMPRESSION: Stable bilateral screening mammogram. Yearly follow-up mammogram recommended. (A) ASSESSMENT CATEGORY: BIRADS Category 2: Benign. A letter regarding these results will be sent to the patient by the facility within 30 days. Approximately 10% of breast cancers are not detected by mammography. A normal mammogram should not delay biopsy of a clinically suspicious abnormality. [id number] Electronically Signed: Jonnie Keller MD at 8:26 EDT ,
== END | disposition home or self-care (01) ==
LOC: OPBI 07:29
PROVIDERS: PCP Nurse Practitioner Family; Referring Provider Nurse Practitioner Family; Visit Provider Nurse Practitioner Family
DX: Z12.31 Encounter for screening mammogram for malignant neoplasm of breast (principal); Z80.3 Family history of malignant neoplasm of breast
CPT/HCPCS: 77063; 77067

== ENCOUNTER → 2023-10-30 | Outpatient (CLI) | payer OTHER, SELFPAY ==
--- NOTE | 2023-10-30 10:24 | RAD_ITS ---
STUDY: X-RAY - LUMBAR SPINE REASON FOR EXAM: Female, 58 years old. Low back pain. TECHNIQUE: 4 view(s) of the lumbar spine were obtained. COMPARISON: March 27, 2021 FINDINGS: Normal lumbar lordosis. No scoliosis. Normal vertebral alignment. Diffuse mild lower thoracic and lumbosacral facet sclerosis unchanged. Mild diffuse intervertebral disc space narrowing with small osteophytes, unchanged. Normal soft tissues. RAD/L/S Spine Min 4 Views IMPRESSION: Stable mild diffuse lower thoracic and lumbosacral spondylosis. No acute abnormality or erosive changes. Electronically Signed: Dash Navarro MD at 14:47 EDT ,
--- NOTE | 2023-10-30 10:24 | RAD_ITS ---
STUDY: X-RAY - BILATERAL KNEES REASON FOR EXAM: Female, 58 years old. KNEE PAIN TECHNIQUE: 4 views of the right knee were obtained. 4 views of the left knee were obtained. COMPARISON: None. FINDINGS - RIGHT KNEE: Normal visualized right distal femur. Normal visualized proximal right tibia and fibula. Normal right proximal tibiofibular articulation. There is no demonstrated fracture of the right knee. Normal medial femorotibial compartment of the right knee. Normal lateral femorotibial compartment of the right knee. Normal patellofemoral articulation of the right knee. The soft tissue structures are unremarkable. FINDING - LEFT KNEE: Normal visualized left distal femur. Normal visualized proximal left tibia and fibula. Normal left proximal tibiofibular articulation. There is no demonstrated fracture of the left knee. Normal medial femorotibial compartment of the left knee. Normal lateral femorotibial compartment of the left knee. Normal patellofemoral articulation of the left knee. The soft tissue structures are unremarkable. RAD/Knee 4 or More Views IMPRESSION: Normal x-ray examination of the bilateral knees. Electronically Signed: Kuldip Flores MD at 15:17 EDT ,
--- NOTE | 2023-10-30 10:25 | RAD_ITS ---
INDICATION: HIP PAIN, ASSESS FOR ARTHRITIS AND VERTEBRAL ALIGNMENT AND DISC S EXAMINATION/TECHNIQUE: X-RAY - XR Hips Bilateral with Pelvis when performed; Min 5 Views COMPARISON: Pelvis X-ray dated 05/23/2020. FINDINGS: PELVIC BONES: No displaced fracture, destructive or sclerotic lesions. Note that overlapping bowel shadows may however obscure fine detail. Sacroiliac joints are unremarkable. No widening of the pubic symphysis. HIPS: There is minimal degenerative arthrosis of the hip joints bilaterally, with mild marginal osteoarthritic osteophyte formation along the lateral acetabula bilaterally. No displaced fracture seen. SOFT TISSUES: No soft tissue swelling or gas. RAD/Hips B/L min 2 views w/ Pelvis IMPRESSION: Minimal degenerative arthrosis of the hip joints bilaterally. No evidence of displaced pelvic or hip fracture. Electronically Signed: Kuldip Flores MD at 15:56 EDT ,
[2023-11-04 14:10] LABS: HPV APTIMA, High Risk Negative (Negative)
== END | disposition home or self-care (01) ==
PROVIDERS: Nurse Practitioner Family; PCP Nurse Practitioner Family; Referring Provider Nurse Practitioner Family; Visit Provider Nurse Practitioner Family
DX: Z01.419 Encounter for gynecological examination (general) (routine) without abnormal findings (principal); M54.50 Low back pain, unspecified; M25.551 Pain in right hip; M25.552 Pain in left hip; M25.561 Pain in right knee; M25.562 Pain in left knee
CPT/HCPCS: 72110; 73521; 73564; 87624; 88175; G0145